=== PATIENT | female | born 1960 | race Caucasian/White ===

== ENCOUNTER 2018-02-22 17:35 | Emergency (ER) | payer OTHER ==
[~2018-02-22] VITALS: Ht 162.6 cm; Wt 92.5 kg
[2018-02-22 17:42] VITALS: Ht 162.6 cm; Wt 92.5 kg
[2018-02-22] MEDS ORDERED: CLOPIDOGREL75 M1 PO (19:37)
[2018-02-22] MEDS ORDERED: MONTELUKAST SOD10 M1 PO (19:38)
[2018-02-22] MEDS ORDERED: FLUTICASON0.05 MG/Ac (19:38)
[2018-02-22 20:21] VITALS: BP 148/90
== END 2018-02-22 20:21 | disposition home or self-care (01) ==
LOC: ED 17:35
DX: T78.40XA Allergy, unspecified, initial encounter (principal); I10 Essential (primary) hypertension; E78.00 Pure hypercholesterolemia, unspecified; X58.XXXA Exposure to other specified factors, initial encounter
CPT/HCPCS: J2930; J7613; J7644; Q0163